=== PATIENT | female | born 1945 | race Caucasian/White ===

== ENCOUNTER 2017-04-10 12:50 | Outpatient (CLI) | payer MEDICARE, OTHER ==
[2017-04-10 18:14] LABS: BASOPHILS # (AUTO) 0.1 10^3/uL (0.0-0.1); BASOPHILS % (AUTO) 0.8 %; EOSINOPHILS # (AUTO) 0.2 10^3/uL (0.0-0.7); EOSINOPHILS % (AUTO) 2.6 %; HCT - HEMATOCRIT 41.6 % (37.0-47.0); HGB - HEMOGLOBIN 14.1 g/dL (12.0-16.0); LYMPHOCYTES # (AUTO) 2.1 10^3/uL (1.5-3.5); LYMPHOCYTES % (AUTO) 26.5 %; MEAN CORPUSCULAR HEMOGLOBIN 30.3 pg (27.0-31.0); MEAN CORPUSCULAR HGB CONC 33.8 g/dL (32.0-36.0); MEAN CORPUSCULAR VOLUME 89.5 fL (81.0-99.0); MONOCYTES # (AUTO) 0.6 10^3/uL (0.0-1.0); NEUTROPHILS # (AUTO) 4.9 10^3/uL (1.5-6.6); NEUTROPHILS % (AUTO) 62.1 %; RED BLOOD COUNT 4.65 10^6/uL (4.20-5.40); RED CELL DISTRIBUTION WIDTH 13.6 % (12.0-15.0); UNCORRECTED WHITE BLOOD COUNT 7.8 x10^3/uL; WHITE BLOOD COUNT 7.8 x10^3/uL (4.8-10.8)
[2017-04-10 19:13] LABS: ALBUMIN/GLOBULIN RATIO 1.4 (1.0-2.2); BILIRUBIN,TOTAL 1.4 mg/dL (0.2-1.0); BUN - BLOOD UREA NITROGEN 19 mg/dL (6-20); CALCIUM 9.3 mg/dL (8.5-10.3); CARBON DIOXIDE - CO2 27 mmol/L (21-32); CHLORIDE 102 mmol/L (101-111); CHOL/HDL RATIO 4.1 (<4.4); CHOLESTEROL 167 mg/dL; CREATININE 0.8 mg/dL (0.4-1.0); GFR - MDRD 71 (>89); GLUCOSE 100 mg/dL (70-100); HDL CHOLESTEROL 41 mg/dL; LDL/HDL RATIO 2.6 (<4.4); POTASSIUM 3.6 mmol/L (3.5-5.0); SODIUM 136 mmol/L (135-145); TOTAL PROTEIN 7.8 g/dL (6.7-8.2); TRIGLYCERIDES 103 mg/dL; VLDL CHOLESTEROL 21 mg/dL
== END 2017-04-10 12:51 | disposition home or self-care (01) ==
LOC: LAB.F 12:50
PROVIDERS: ATTEND Physician Assistant Medical
DX: I10 Essential (primary) hypertension (principal); E55.9 Vitamin D deficiency, unspecified; E78.5 Hyperlipidemia, unspecified
CPT/HCPCS: 36415; 80053; 80061; 82306; 85025

== ENCOUNTER 2017-04-19 10:12 | Outpatient (CLI) | payer MEDICARE, OTHER ==
--- NOTE | 2017-04-19 14:29 | DEXA Report ---
DEXA SCAN: 04/19/2017 CLINICAL INDICATION: Postmenopausal. TECHNIQUE: Dual energy x-ray absorptiometry (DXA) was performed on a [employer] system. Regions measured are the AP spine, femoral neck, and, if needed, forearm. COMPARISON: None. In accordance with the International Society for Clinical Densitometry (ISCD) guidelines, data from previous exams may be reanalyzed using current recommendations and techniques. This is done to allow a more accurate basis for comparison with the current study. FINDINGS: The data for the lumbar spine is as follows: REGION BMD (g/cm/cm) T-SCORE Z-SCORE L1 0.815 -2.6 -1.5 L2 0.968 -1.9 -0.8 L3 1.005 -1.6 -0.5 L4 0.921 -2.3 -1.2 TOTAL 0.930 -2.1 -1.0 NOTE: All evaluable vertebrae are used for classification. The data for the hip is as follows: REGION BMD (g/cm/cm) T-SCORE Z-SCORE Neck 0.797 -1.7 -0.4 TOTAL 0.799 -1.7 -0.6 NOTE: The femoral neck or total proximal femur, whichever is lowest, is used for classification. IMPRESSION: THE WHO CLASSIFICATION BASED ON THE INTERNATIONAL REFERENCE STANDARD IS OSTEOPENIA. THE FRACTURE RISK IS INCREASED. RECOMMENDATION: Patients with diagnosis of osteoporosis or osteopenia should have regular bone mineral density assessment. For those eligible for Medicare, routine testing is allowed once every 2 years. Testing frequency can be increased for patients who have rapidly progressing disease or for those who are receiving medical therapy to restore bone mass. COMMENT: World Health Organization (WHO) definitions for osteoporosis and osteopenia: NORMAL BMD: T-score at -1.0 or higher, fracture risk is low. OSTEOPENIA BMD: T-score between -1.0 and -2.5, fracture risk is increased. OSTEOPOROSIS BMD: T-score at -2.5 or lower, fracture risk high. National Osteoporosis Foundation recommends: 1. Obtain adequate dietary calcium (at least 1200 mg per day) and vitamin D (400 -800 international units per day). 2. Participate, as appropriate, in regular weightbearing and muscle- strengthening exercise. 3. Avoid tobacco use and reduce alcohol and caffeine intake. 4. For more detailed information see the website at www.NOF.org. MTDD
== END 2017-04-19 10:13 | disposition home or self-care (01) ==
LOC: DI 10:12
PROVIDERS: ATTEND Physician Assistant Medical
DX: Z13.820 Encounter for screening for osteoporosis (principal); M85.89 Other specified disorders of bone density and structure, multiple sites
CPT/HCPCS: 77080

== ENCOUNTER 2017-04-19 10:13 | Outpatient (CLI) | payer MEDICARE, OTHER ==
--- NOTE | 2017-05-06 13:50 | Mammography Report ---
DIGITAL SCREENING MAMMOGRAM: 04/19/2017 CLINICAL INDICATION: A 71-year-old, for screening. COMPARISON: Films from [place], [place] dated 05/05/2012, 09/26/2010, 08/17/2008. TECHNIQUE: Routine CC and MLO projections were obtained of the breasts. Bilateral laterally exaggera sara craniocaudal views. FINDINGS: The breasts again demonstrate scattered fibroglandular densities bilaterally. Coarse and p unctate, typically benign calcifications are present. No suspicious masses, clustered microcalcificat ions, or regions of architectural distortion are identified. IMPRESSION: BENIGN FINDINGS. RECOMMENDATION: ROUTINE ANNUAL SCREENING UNLESS OTHERWISE CLINICALLY INDICATED. BIRADS CATEGORY 2-BENIGN FINDINGS. STANDARD QUALIFYING STATEMENTS 1. This examination was reviewed with the aid of Computer-Aided Detection (CAD). 2. A negative or benign imaging report should not delay biopsy if clinically suspicious findings are present. Consider surgical consultation if warranted. More than 5% of cancers are not identified by i maging. 3. Dense breasts may obscure an underlying neoplasm. JOB #: [id number] EXT JOB #:[id number]
== END 2017-04-19 10:14 | disposition home or self-care (01) ==
LOC: DI 10:13
PROVIDERS: ATTEND Physician Assistant Medical
DX: Z12.31 Encounter for screening mammogram for malignant neoplasm of breast (principal)
CPT/HCPCS: 77067

== ENCOUNTER 2017-08-28 11:17 | Outpatient (CLI) | payer MEDICARE, OTHER ==
[2017-08-28 17:35] LABS: HCT - HEMATOCRIT 41.8 % (37.0-47.0); HGB - HEMOGLOBIN 14.3 g/dL (12.0-16.0); MEAN CORPUSCULAR HEMOGLOBIN 30.8 pg (27.0-31.0); MEAN CORPUSCULAR HGB CONC 34.2 g/dL (32.0-36.0); MEAN PLATELET VOLUME 8.6 fL (7.9-10.8); RED BLOOD COUNT 4.65 10^6/uL (4.20-5.40); RED CELL DISTRIBUTION WIDTH 13.4 % (12.0-15.0); WHITE BLOOD COUNT 7.4 x10^3/uL (4.8-10.8)
[2017-08-28 17:55] LABS: URIC ACID 7.9 mg/dL (2.6-7.2)
[2017-08-30 15:42] LABS: ANA SCREEN POSITIVE (NEGATIVE)
== END 2017-08-28 11:18 | disposition home or self-care (01) ==
LOC: LAB.F 11:17
PROVIDERS: ATTEND Orthopaedic Surgery
DX: M25.561 Pain in right knee (principal); S86.912A Strain of unspecified muscle(s) and tendon(s) at lower leg level, left leg, initial encounter
CPT/HCPCS: 36415; 84550; 85651; 86038; 86140; 86430

== ENCOUNTER 2018-09-09 10:50 | Outpatient (CLI) | payer MEDICARE, OTHER ==
[2018-09-09 17:51] LABS: BASOPHILS % (AUTO) 0.5 %; EOSINOPHILS # (AUTO) 0.3 10^3/uL (0.0-0.7); EOSINOPHILS % (AUTO) 4.4 %; HGB - HEMOGLOBIN 12.8 g/dL (12.0-16.0); LYMPHOCYTES # (AUTO) 2.1 10^3/uL (1.5-3.5); MEAN CORPUSCULAR HEMOGLOBIN 30.1 pg (27.0-31.0); MEAN CORPUSCULAR HGB CONC 33.9 g/dL (32.0-36.0); MEAN CORPUSCULAR VOLUME 88.8 fL (81.0-99.0); MEAN PLATELET VOLUME 8.5 fL (7.9-10.8); MONOCYTES # (AUTO) 0.7 10^3/uL (0.0-1.0); MONOCYTES % (AUTO) 9.1 %; NEUTROPHILS # (AUTO) 4.2 10^3/uL (1.5-6.6); PLT - PLATELET COUNT 283 10^3/uL (130-450); RED BLOOD COUNT 4.26 10^6/uL (4.20-5.40); RED CELL DISTRIBUTION WIDTH 13.4 % (12.0-15.0); WHITE BLOOD COUNT 7.3 x10^3/uL (4.8-10.8)
[2018-09-09 18:12] LABS: ALBUMIN 4.3 g/dL (3.2-5.5); ALBUMIN/GLOBULIN RATIO 1.2 (1.0-2.2); ALKALINE PHOSPHATASE 81 IU/L (42-121); ALT ALANINE AMINOTRANSFERASE 18 IU/L (10-60); AST ASPARTATE AMINOTRANSFERASE 19 IU/L (10-42); BILIRUBIN,TOTAL 1.3 mg/dL (0.2-1.0); BUN - BLOOD UREA NITROGEN 15 mg/dL (6-20); CALCIUM 9.1 mg/dL (8.5-10.3); CARBON DIOXIDE - CO2 29 mmol/L (21-32); CHLORIDE 100 mmol/L (101-111); CHOL/HDL RATIO 3.9 (<4.4); CHOLESTEROL 155 mg/dL; CREATININE 0.7 mg/dL (0.4-1.0); GFR - MDRD 82 (>89); GLUCOSE 111 mg/dL (70-100); HDL CHOLESTEROL 40 mg/dL; LDL CHOLESTEROL,CALCULATED 93 mg/dL; LDL/HDL RATIO 2.3 (<4.4); SODIUM 136 mmol/L (135-145); TOTAL PROTEIN 7.8 g/dL (6.7-8.2); VLDL CHOLESTEROL 22 mg/dL
== END 2018-09-09 10:51 | disposition home or self-care (01) ==
LOC: LAB.F 10:50
PROVIDERS: ATTEND Physician Assistant Medical
DX: I10 Essential (primary) hypertension (principal); E78.5 Hyperlipidemia, unspecified
CPT/HCPCS: 36415; 80053; 80061; 83721; 85025

== ENCOUNTER 2018-12-11 13:57 | Outpatient (CLI) | payer MEDICARE, OTHER | END 2018-12-11 13:58 | disposition home or self-care (01) | LOC: DI 13:57 | PROVIDERS: ATTEND Physician Assistant Medical | DX: I49.9 Cardiac arrhythmia, unspecified (principal); Z86.79 Personal history of other diseases of the circulatory system; I35.2 Nonrheumatic aortic (valve) stenosis with insufficiency | CPT/HCPCS: 93306 ==

== ENCOUNTER 2019-02-10 08:00 | Outpatient (CLI) | payer MEDICARE, OTHER ==
[2019-02-10 17:50] LABS: BASOPHILS % (AUTO) 0.5 %; EOSINOPHILS # (AUTO) 0.2 10^3/uL (0.0-0.7); HGB - HEMOGLOBIN 13.8 g/dL (12.0-16.0); LYMPHOCYTES # (AUTO) 1.8 10^3/uL (1.5-3.5); LYMPHOCYTES % (AUTO) 24.1 %; MEAN CORPUSCULAR HEMOGLOBIN 30.1 pg (27.0-31.0); MEAN CORPUSCULAR HGB CONC 34.1 g/dL (32.0-36.0); MEAN CORPUSCULAR VOLUME 88.3 fL (81.0-99.0); MEAN PLATELET VOLUME 9.1 fL (7.9-10.8); MONOCYTES # (AUTO) 0.7 10^3/uL (0.0-1.0); MONOCYTES % (AUTO) 9.1 %; NEUTROPHILS # (AUTO) 4.9 10^3/uL (1.5-6.6); NEUTROPHILS % (AUTO) 64.3 %; PLT - PLATELET COUNT 228 10^3/uL (130-450); RED BLOOD COUNT 4.58 10^6/uL (4.20-5.40); RED CELL DISTRIBUTION WIDTH 13.9 % (12.0-15.0); WHITE BLOOD COUNT 7.7 x10^3/uL (4.8-10.8)
[2019-02-10 17:58] LABS: BILIRUBIN,URINE NEGATIVE (NEGATIVE); CALCIUM 8.8 mg/dL (8.5-10.3); CREATININE 1.1 mg/dL (0.4-1.0); GLUCOSE, URINE (UA) NEGATIVE (NEGATIVE); KETONES,URINE (UA) TRACE mg/dL (NEGATIVE); LEUKOCYTE ESTERASE, URINE NEGATIVE (NEGATIVE); NITRITE,URINE NEGATIVE (NEGATIVE); OCCULT BLOOD,URINE NEGATIVE (NEGATIVE); PROTEIN,URINE NEGATIVE (NEGATIVE); UROBILINOGEN,URINE 0.2 (NORMAL) E.U./dL (NORMAL)
[2019-02-10 18:00] LABS: CLARITY,URINE CLEAR (CLEAR)
[2019-02-10 18:19] LABS: HB2 TOTAL 14.7 g/dL; HEMOGLOBIN A1C 0.52 g/dL; HEMOGLOBIN A1C % 5.4 % (4.6-6.2)
== END 2019-02-10 23:59 | disposition home or self-care (01) ==
LOC: LAB.F 08:00
PROVIDERS: ATTEND Orthopaedic Surgery
DX: Z01.812 Encounter for preprocedural laboratory examination (principal); R73.9 Hyperglycemia, unspecified; N39.9 Disorder of urinary system, unspecified; Z13.1 Encounter for screening for diabetes mellitus
CPT/HCPCS: 36415; 80048; 81003; 83036; 85025

== ENCOUNTER 2020-06-25 13:23 | Outpatient (CLI) | payer MEDICARE, OTHER | END 2020-06-25 13:24 | disposition home or self-care (01) | LOC: RT 13:23 | PROVIDERS: ATTEND Physician Assistant | DX: I10 Essential (primary) hypertension (principal); R06.2 Wheezing; R06.00 Dyspnea, unspecified; R01.1 Cardiac murmur, unspecified | CPT/HCPCS: 94010 ==

== ENCOUNTER 2021-07-26 08:00 | Outpatient (CLI) | payer MEDICARE, OTHER ==
[2021-07-26 21:30] LABS: BACTERIAL VAGINOSIS DNA NEGATIVE (NEGATIVE); CANDIDA GLABRATA DNA NEGATIVE (NEGATIVE); CANDIDA GROUP DNA NEGATIVE (NEGATIVE); CANDIDA KRUSEI DNA NEGATIVE (NEGATIVE); TRICHOMONAS VAGINALIS DNA NEGATIVE (NEGATIVE)
== END 2021-07-26 23:59 | disposition home or self-care (01) ==
LOC: LAB.S 08:00
PROVIDERS: ATTEND Physician Assistant Medical
DX: N76.0 Acute vaginitis (principal)
CPT/HCPCS: 87661; 87801

== ENCOUNTER 2021-09-11 11:42 | Outpatient (CLI) | payer MEDICARE, OTHER ==
[2021-09-11 14:59] LABS: BASOPHILS % (AUTO) 0.4 %; EOSINOPHILS # (AUTO) 0.2 10^3/uL (0.0-0.7); EOSINOPHILS % (AUTO) 1.8 %; HCT - HEMATOCRIT 42.7 % (37.0-47.0); HGB - HEMOGLOBIN 13.9 g/dL (12.0-16.0); LYMPHOCYTES # (AUTO) 1.9 10^3/uL (1.5-3.5); LYMPHOCYTES % (AUTO) 18.9 %; MEAN CORPUSCULAR HEMOGLOBIN 29.8 pg (27.0-31.0); MEAN CORPUSCULAR HGB CONC 32.6 g/dL (32.0-36.0); MEAN CORPUSCULAR VOLUME 91.4 fL (81.0-99.0); MONOCYTES # (AUTO) 0.8 10^3/uL (0.0-1.0); MONOCYTES % (AUTO) 7.8 %; NEUTROPHILS # (AUTO) 7.2 10^3/uL (1.5-6.6); NEUTROPHILS % (AUTO) 70.6 %; PLT - PLATELET COUNT 243 10^3/uL (130-450); RED BLOOD COUNT 4.67 10^6/uL (4.20-5.40); RED CELL DISTRIBUTION WIDTH 13.5 % (12.0-15.0); WHITE BLOOD COUNT 10.1 x10^3/uL (4.8-10.8)
[2021-09-11 15:21] LABS: THYROID STIMULATING HORMONE 1.18 uIU/mL (0.34-5.60)
[2021-09-11 15:40] LABS: ALBUMIN 4.6 g/dL (3.2-5.5); ALBUMIN/GLOBULIN RATIO 1.2 (1.0-2.2); ALKALINE PHOSPHATASE 66 IU/L (42-121); ALT ALANINE AMINOTRANSFERASE 42 IU/L (10-60); AST ASPARTATE AMINOTRANSFERASE 34 IU/L (10-42); BILIRUBIN,TOTAL 1.5 mg/dL (0.2-1.0); BUN - BLOOD UREA NITROGEN 18 mg/dL (6-20); CALCIUM 9.4 mg/dL (8.5-10.3); CARBON DIOXIDE - CO2 26 mmol/L (21-32); CHLORIDE 101 mmol/L (101-111); CHOL/HDL RATIO 4.2 (<4.4); CHOLESTEROL 186 mg/dL; GFR - MDRD 54 (>89); GLUCOSE 104 mg/dL (70-100); HDL CHOLESTEROL 44 mg/dL; LDL CHOLESTEROL,CALCULATED 116 mg/dL; LDL/HDL RATIO 2.6 (<4.4); POTASSIUM 3.7 mmol/L (3.5-5.0); SODIUM 139 mmol/L (135-145); TOTAL PROTEIN 8.3 g/dL (6.7-8.2); TRIGLYCERIDES 130 mg/dL; VLDL CHOLESTEROL 26 mg/dL
== END 2021-09-11 11:43 | disposition home or self-care (01) ==
LOC: LAB.S 11:42
PROVIDERS: ATTEND Internal Medicine
DX: E78.5 Hyperlipidemia, unspecified (principal); K21.9 Gastro-esophageal reflux disease without esophagitis; I10 Essential (primary) hypertension; I49.9 Cardiac arrhythmia, unspecified; Z86.79 Personal history of other diseases of the circulatory system
CPT/HCPCS: 36415; 80053; 80061; 83721; 84443; 85025

== ENCOUNTER 2022-02-21 08:00 | Outpatient (CLI) | payer MEDICARE, OTHER ==
--- NOTE | 2022-02-21 16:37 | XRAY Report ---
PROCEDURE: Chest 2 View X-Ray INDICATIONS: WHEEZING TECHNIQUE: 2 view(s) of the chest. COMPARISON: None. FINDINGS: Surgical changes and devices: None. Lungs and pleura: No pleural effusions or pneumothorax. Lungs are clear. Mediastinum: Mediastinal contours are normal. Heart size is normal. Bones and chest wall: No suspicious bony abnormalities. Soft tissues appear unremarkable. IMPRESSION: No acute cardiopulmonary process demonstrated radiographically. Reviewed by: Jonathan Chavez MD on 02/21/2022 4:35 PM PDT Approved by: Jonathan Chavez MD on 02/21/2022 4:35 PM PDT Station ID: [id number]
== END 2022-02-21 23:59 | disposition home or self-care (01) ==
LOC: DI.S 08:00
PROVIDERS: ATTEND Physician Assistant
DX: R06.2 Wheezing (principal); R05.8 Other specified cough; J34.89 Other specified disorders of nose and nasal sinuses; Z20.822 Contact with and (suspected) exposure to COVID-19
CPT/HCPCS: 71046; U0004

== ENCOUNTER 2023-05-10 14:26 | Outpatient (CLI) | payer MEDICARE | END 2023-05-10 23:59 | disposition critical access hospital (66) | LOC: EMS 14:26 | DX: I48.91 Unspecified atrial fibrillation (principal); R07.9 Chest pain, unspecified | CPT/HCPCS: A0425; A0427 ==

== ENCOUNTER 2023-05-10 15:02 | Emergency (ER) | payer MEDICARE ==
[2023-05-10] MEDS ORDERED: SODIUM CHLORIDE 0.9% 1,000 ML IV STA (15:18)
--- NOTE | 2023-05-10 15:23 | ED Physician Documentation ---
PD HPI CHEST PAIN - Stated complaint Stated Complaint: RAPID AFIB - Chief complaint Chief Complaint: Cardiac - History obtained from History obtained from: Patient - Additional information Additional information: Patient is a 77-year-old female presenting for evaluation of chest pain and noted to be in A-fib. Patient reports starting to have chest pain in the middle of her chest yesterday around 4 PM as she was sitting at home. She denies radiation to the pain. She reports associated feeling short of air and having difficulty in taking a deep breath. She also reports having periods over the pa st several weeks where her heart feels fluttering and racing. She has been to her PCP at the end of April for this and reports being told she was in A-fib but that they would continue to monitor this. She was not started on a blood thinner. She does not take regular aspirin. She does not currently see a resident care technician.She thinks she may have a had a history of A-fib in the past but again has never been placed on a blood thinner.Denies a history of a blood clot. Denies a history of a previous CT. Review of Systems Constitutional: denies: Fever Cardiac: reports: Chest pain / pressure Respiratory: reports: Dyspnea GI: denies: Abdominal Pain, Vomiting : denies: Dysuria Neurologic: denies: Syncope PD PAST MEDICAL HISTORY - Past Medical History Cardiovascular: Hypertension Respiratory: Asthma Endocrine/Autoimmune: None GI: GERD : None HEENT: Chronic vision loss, Other Psych: Depression, Anxiety Musculoskeletal: Osteoarthritis Derm: None - Past Surgical History General: Colonoscopy, EGD Ortho: Hip replacement - Present Medications Home Medications: Ambulatory Orders Medication Instructions Recorded Confirmed Aspirin [Aspir-Low] 81 mg PO DAILY 02/24/16 02/24/16 Atorvastatin Calcium [Lipitor] 20 mg PO DAILY 02/24/16 02/24/16 Citalopram Hydrobromide [Celexa] 40 mg PO DAILY 02/24/16 02/24/16 Folic Acid 1 mg PO DAILY 02/24/16 02/24/16 Potassium Chloride 10 mg PO DAILY 02/24/16 02/24/16 Trazodone HCl 50 mg PO DAILY 02/24/16 02/24/16 Triamterene/Hydrochlorothiazid 1 tab PO DAILY 02/24/16 02/24/16 [Triamterene-Hctz 75-50 mg Tab] raNITIdine HCL [Ranitidine HCl] 150 mg PO BID 02/24/16 02/24/16 Apixaban [Eliquis] 5 mg PO BID #60 tablet 05/10/23 dilTIAZem HCL [Cardizem] 30 mg PO Q6HR 30 Days #120 tab 05/10/23 - Allergies Allergies/Adverse Reactions: Allergies Allergy/AdvReac Type Severity Reaction Status Date / Time hydrocodone Allergy Rash Verified 05/10/23 15:17 - Social History Smoking Status: Never smoker PD ED PE NORMAL - General General: Alert and oriented X 3, No acute distress, Well developed/nourished - HEENT HEENT: Atraumatic - Neck Neck: Supple, no meningeal sign - Cardiac Cardiac: Other (Tachycardic, irregularly irregular) - Respiratory Respiratory: No respiratory distress, Clear bilaterally - Abdomen Abdomen: Soft, Non tender - Derm Derm: Warm and dry - Extremities Extremities: No edema, No calf tenderness / cord - Neuro Neuro: Alert and oriented X 3, No motor deficit, Normal speech Results - Vitals Vitals: Vital Signs - 24 hr 05/10/23 05/10/23 15:08 18:53 Temperature 36.4 C L Heart Rate 118 H 96 Respiratory 18 22 Rate Blood Pressure 122/76 115/62 O2 Saturation 92 91 L Oxygen O2 Source Room air - EKG (time done) 1504 EKG releavant findings:: EKG personally interpreted by author of this note. Relevant findings are: Rate 112, atrial fibrillation, no STEMI Rate: Rate (enter#) (112) Rhythm: Atrial fibrillation Ischemia: No: ST elevation c/w ischemia Compare to prior EKG: Old EKG unavailable - Labs Labs: Laboratory Tests 05/10/23 05/10/23 05/10/23 15:27 15:27 15:27 WBC 13.1 H RBC 3.98 L Hgb 12.3 Hct 35.9 L MCV 90.2 MCH 30.9 MCHC 34.3 RDW 13.4 Plt Count 209 MPV 10.2 Neut # (Auto) 9.3 H Lymph # (Auto) 2.3 Nye # (Auto) 1.4 H Eos # (Auto) 0.1 Baso # (Auto) 0.0 Absolute Nucleated RBC 0.00 Nucleated RBC % 0.0 D-Dimer 222.9 Sodium 136 Potassium 3.3 L Chloride 103 Carbon Dioxide 23 Anion Gap 10.0 BUN 19 Creatinine 1.0 Estimated GFR (MDRD) 54 L Glucose 105 H Calcium 8.8 Total Bilirubin 2.1 H AST 16 ALT 18 Alkaline Phosphatase 54 Troponin I High Sens Total Protein 7.7 Albumin 3.8 Globulin 3.9 Albumin/Globulin Ratio 1.0 Lipase 28 TSH 05/10/23 05/10/23 05/10/23 15:27 15:27 17:21 WBC RBC Hgb Hct MCV MCH MCHC RDW Plt Count MPV Neut # (Auto) Lymph # (Auto) [place]ye # (Auto) Eos # (Auto) Baso # (Auto) Absolute Nucleated RBC Nucleated RBC % D-Dimer Sodium Potassium Chloride Carbon Dioxide Anion Gap BUN Creatinine Estimated GFR (MDRD) Glucose Calcium Total Bilirubin AST ALT Alkaline Phosphatase Troponin I High Sens 84.1 H* 81.7 H* Total Protein Albumin Globulin Albumin/Globulin Ratio Lipase TSH 1.35 PD Medical Decision Making - ED course Complexity details: reviewed results, re-evaluated patient, d/w patient ED course: Patient is a 77-year-old female presenting for evaluation of chest pain And atrial fibrillation. It appears that she has had a prior history of A-fib per her reports but has not been on medication for it. It is unclear how long she Has been in A-fib. She does report having chest pain that started since yesterday afternoon in the setting of feeling her heart racing. She was seen at the walk-in clinic and noted to be in A-fib with RVR and was given IV diltiazem from EMS. I gave her an additional IV dose of diltiazem as well as p.o. Cardizem. She had improvement with her rate which significantly improved her symptoms and she no longer was feeling any chest pain. Initial high-sensitivity troponin is 84 which is in the indeterminate zone. A repeat troponin is 81 which is slightly lower and not significantly changed. Therefore I feel that these values and the delta makes ACS less likely especially as her symptoms have largely resolved with rate control. D-dimer is negative thus I do not think she has a pulmonary embolism. Bili is 2.1 but she has no abdominal tenderness. I reviewed her chest x-ray. No pleural effusions. She is feeling much better here and has maintained adequate rate control.She does not have Exam findings to suggest fluid overload. We discussed anticoagulation as her [id number] score is greater than 2.She understands the risks of anticoagulation and is agreeable to Eliquis. I have started her on p.o. Cardizem and Eliquis. She does not currently have a resident care technician. I have encouraged her to make a follow-up appointment with her PCP for close follow-up. She is also advised on strict return precautions for any new or worsening symptoms. Departure - Departure Disposition: 01 Home, Self Care Clinical Impression: Atrial fibrillation, Chest pain Condition: Stable Instructions: ED Afib, ED Chest Pain Atypical Unkn Cause Follow-Up: RACHID HARDY PA [Physician No Access] - Prescriptions: dilTIAZem HCL [Cardizem] 30 mg PO Q6HR 30 Days #120 tab Apixaban [Eliquis] 5 mg PO BID #60 tablet Comments: You were evaluated for an irregular rhythm called atrial fibrillation as well as chest pain. It is unclear how long you have been in this your regular rhythm. We have been able to help by giving you medicine to help lower how fast your heart is going. However you are still in this irregular rhythm. We are starting you on 2 medications. 1 medicine is called Cardizem and this is to help control the heart rate so it does not become too fast. Before taking this medication please check your heart rate. Do not take this medicine if your heart rate is below 60. The other medicine that we are prescribing is called Eliquis which is a blood thinner. This will help prevent clots in your body from forming due to this irregular rhythm. As we have discussed that there are risks associated with being on a blood thinner including a life-threatening bleeding. At this time I believe that your chest pain was related to your heart beating too fast from your irregular rhythm. However you may need further testing to check your heart including an echocardiogram which is an ultrasound of your heart or a stress test. I would recommend calling your primary care provider on Saturday morning to arrange for close follow-up regarding your new diagnosis as well as these medications and your chest pain. If it anytime you have any recurrence of your symptoms or new concerning symptoms please return to the emergency department. I have sent your prescriptions to [facility] in [place]. Discharge Date/Time: 05/10/23 18:53
[2023-05-10] MEDS ORDERED: diltiaZEM INJ 5 MG/ML VIAL IVP STA (15:32)
[2023-05-10 15:35] LABS: BASOPHILS % (AUTO) 0.2 %; EOSINOPHILS # (AUTO) 0.1 10^3/uL (0.0-0.7); EOSINOPHILS % (AUTO) 0.7 %; HCT - HEMATOCRIT 35.9 % (37.0-47.0); HGB - HEMOGLOBIN 12.3 g/dL (12.0-16.0); LYMPHOCYTES # (AUTO) 2.3 10^3/uL (1.5-3.5); LYMPHOCYTES % (AUTO) 17.6 %; MEAN CORPUSCULAR HEMOGLOBIN 30.9 pg (27.0-31.0); MEAN CORPUSCULAR HGB CONC 34.3 g/dL (32.0-36.0); MEAN CORPUSCULAR VOLUME 90.2 fL (81.0-99.0); MEAN PLATELET VOLUME 10.2 fL (7.9-10.8); MONOCYTES # (AUTO) 1.4 10^3/uL (0.0-1.0); MONOCYTES % (AUTO) 10.5 %; NEUTROPHILS # (AUTO) 9.3 10^3/uL (1.5-6.6); NEUTROPHILS % (AUTO) 70.6 %; PLT - PLATELET COUNT 209 10^3/uL (130-450); RED BLOOD COUNT 3.98 10^6/uL (4.20-5.40); RED CELL DISTRIBUTION WIDTH 13.4 % (12.0-15.0); WHITE BLOOD COUNT 13.1 x10^3/uL (4.8-10.8)
[2023-05-10 15:46] LABS: ALBUMIN 3.8 g/dL (3.2-5.5); BILIRUBIN,TOTAL 2.1 mg/dL (0.2-1.0); CALCIUM 8.8 mg/dL (8.5-10.3); POTASSIUM 3.3 mmol/L (3.5-5.0); TOTAL PROTEIN 7.7 g/dL (6.7-8.2)
[2023-05-10] MEDS ORDERED: POTASSIUM CHLORIDE 20 MEQ TABLET PO STA (16:16)
[2023-05-10] MEDS ORDERED: diltiaZEM 30 MG TABLET PO STA (16:26)
--- NOTE | 2023-05-10 17:27 | XRAY Report ---
PROCEDURE: Chest 1 View X-Ray INDICATIONS: CP TECHNIQUE: One view of the chest was acquired. COMPARISON: 02/21/2022 FINDINGS: Surgical changes and devices: None. Lungs and pleura: Moderate interstitial prominence, increased compared to prior imaging. No pleural effusions. Mediastinum: Borderline cardiomegaly. Bones and chest wall: No suspicious bony lesions. Overlying soft tissues appear unremarkable. IMPRESSION: Increased diffuse interstitial prominence representing edema or atypical infection. No pleural effusi ons. Consider future imaging surveillance to assess for resolution. . Borderline cardiomegaly. Reviewed by: Hang Amador MD on 05/10/2023 5:26 PM PDT Approved by: Hang Amador MD on 05/10/2023 5:26 PM PDT Station ID: [id number]
[2023-05-10] MEDS ORDERED: APIXABAN 5 MG TABLET PO STA (18:04)
[2023-05-10 18:59] VITALS: BP 115/62
== END 2023-05-10 18:53 | disposition home or self-care (01) ==
LOC: EDUNIT# → ED 15:02
DX: R07.9 Chest pain, unspecified (principal); I48.91 Unspecified atrial fibrillation
CPT/HCPCS: 36415; 71045; 80053; 83690; 84443; 84484; 85025; 85379; 93005; 96374; 99284; A9270

== ENCOUNTER 2023-06-03 14:21 | Outpatient (CLI) | payer MEDICARE ==
--- NOTE | 2023-06-03 16:50 | DEXA Report ---
PROCEDURE: Dexa Spine and/or Hip INDICATIONS: POST MENOPAUSAL TECHNIQUE: Dual energy x-ray absorptiometry (DXA) was performed on a [employer] System. Regions measur ed are the AP Spine, femoral neck, and if needed forearm. COMPARISON: DEXA, 04/19/2017. FINDINGS: Lumbar Spine: Bone Mineral Density 1.009 g/cm/cm,T score -1.4. Increased by 8.5%. Left Forearm: Bone Mineral Density 0.788 g/cm/cm, T score -1.0. Left forearm bone density was obtained instead of hips because of bilateral arthroplasties. (T score greater or equal to -1.0: NORMAL) (T score from -1.1 to -2.4: OSTEOPENIA) (T score less than or equal to -2.5 to: OSTEOPOROSIS) Impression: 1. By WHO criteria, this patient has osteoporosis. Compared to last exam, the patient's bone density in lumbar spine has increased by 8.5%. 2. Left forearm bone density was obtained because of bilateral hip arthroplasties. Patients with diagnosis of osteoporosis or osteopenia should have regular bone mineral density assess ment. For those eligible for Medicare, routine testing is allowed once every 2 years. Testing frequ ency can be increased for patients who have rapidly progressing disease or for those who are receivin g medical therapy to restore bone mass. Reviewed by: Turner Lundberg MD on 06/03/2023 4:49 PM PDT Approved by: Turner Lundberg MD on 06/03/2023 4:49 PM PDT Station ID: [id number]
== END 2023-06-03 14:22 | disposition home or self-care (01) ==
LOC: DI 14:21
PROVIDERS: ATTEND Physician Assistant
DX: Z78.0 Asymptomatic menopausal state (principal); M81.0 Age-related osteoporosis without current pathological fracture; Z96.643 Presence of artificial hip joint, bilateral

== ENCOUNTER 2023-06-03 14:23 | Outpatient (CLI) | payer MEDICARE ==
--- NOTE | 2023-06-04 10:13 | Mammography Report ---
BILATERAL DIGITAL SCREENING MAMMOGRAM 3D/2D: 06/03/2023 CLINICAL: Routine screening. Comparison is made to exam dated: 04/19/2017 mammogram - [facility]. There are scattered areas of fibroglandular density in both breasts (category b / 25%-50% glandular t issue). No significant masses, calcifications, or other findings are seen in either breast. There has been no significant interval change. IMPRESSION: NEGATIVE There is no mammographic evidence of malignancy. A 1 year screening mammogram is recommended. Based on the Tyrer Cuzick model (a risk assessment model) the patients lifetime risk is 2.1% and her 10 year risk is 0.0%. According to the ACR, ACS, and NCCN guidelines, an annual breast MRI exam shahnaz g with mammogram is recommended if the patients lifetime risk is 20% or greater. This exam was interpreted at Station ID: [id number]. NOTE: For mammograms, a report in lay terms will be sent to the patient. Approximately 15% of breast malignancies will not be visualized mammographically. In the management of a palpable breast mass, a negative mammogram must not discourage biopsy of a clinically suspicious lesion. Electronically Signed By: Junior [email or web address]/kiya:06/04/2023 07:46:43 letter sent: No_Letter ACR BI-RADS Category 1: Negative 3341F PARENCHYMAL PATTERN: (A) - The breast(s) demonstrate(s) scattered fibroglandular densities. BI-RADS CATEGORY: (1) - 1 Mammogram [id number] 1 year screening LATERALITY: (B)
== END 2023-06-03 14:24 | disposition home or self-care (01) ==
LOC: DI 14:23
PROVIDERS: ATTEND Physician Assistant
DX: Z12.31 Encounter for screening mammogram for malignant neoplasm of breast (principal)

== ENCOUNTER 2023-07-11 12:43 | Outpatient (CLI) | payer MEDICARE | END 2023-07-11 12:44 | disposition home or self-care (01) | LOC: DI 12:43 | PROVIDERS: ATTEND Physician Assistant | DX: I08.0 Rheumatic disorders of both mitral and aortic valves (principal) | CPT/HCPCS: 93306 ==

== ENCOUNTER 2023-09-26 23:57 | Emergency (ER) | payer MEDICARE ==
[2023-09-27 00:28] LABS: BASOPHILS # (AUTO) 0.1 10^3/uL (0.0-0.1); BASOPHILS % (AUTO) 0.4 %; EOSINOPHILS # (AUTO) 0.3 10^3/uL (0.0-0.7); EOSINOPHILS % (AUTO) 2.8 %; HCT - HEMATOCRIT 41.2 % (37.0-47.0); HGB - HEMOGLOBIN 13.3 g/dL (12.0-16.0); LYMPHOCYTES # (AUTO) 3.4 10^3/uL (1.5-3.5); LYMPHOCYTES % (AUTO) 29.9 %; MEAN CORPUSCULAR HEMOGLOBIN 29.6 pg (27.0-31.0); MEAN CORPUSCULAR HGB CONC 32.3 g/dL (32.0-36.0); MEAN CORPUSCULAR VOLUME 91.8 fL (81.0-99.0); MEAN PLATELET VOLUME 10.2 fL (7.9-10.8); MONOCYTES # (AUTO) 0.9 10^3/uL (0.0-1.0); NEUTROPHILS # (AUTO) 6.7 10^3/uL (1.5-6.6); NEUTROPHILS % (AUTO) 58.4 %; PLT - PLATELET COUNT 252 10^3/uL (130-450); RED BLOOD COUNT 4.49 10^6/uL (4.20-5.40); RED CELL DISTRIBUTION WIDTH 14.7 % (12.0-15.0); WHITE BLOOD COUNT 11.4 x10^3/uL (4.8-10.8)
--- NOTE | 2023-09-27 00:40 | XRAY Report ---
PROCEDURE: Chest 1 View X-Ray INDICATIONS: CP TECHNIQUE: One view of the chest was acquired. COMPARISON: None. FINDINGS: Surgical changes and devices: None. Lungs and pleura: Increased pulmonary vascularity. Mediastinum: Mediastinal contours appear normal. Heart size is enlarged. Bones and chest wall: No suspicious bony lesions. Overlying soft tissues appear unremarkable. IMPRESSION: Cardiomegaly with increased vascularity suggestive of edema. Reviewed by: Liyah Solomon MD on 09/27/2023 12:38 AM RUST Approved by: Liyah Solomon MD on 09/27/2023 12:38 AM RUST Station ID: [id number]
[2023-09-27 00:42] LABS: ALBUMIN 4.1 g/dL (3.2-5.5); ALBUMIN/GLOBULIN RATIO 1.5 (1.0-2.2); BILIRUBIN,TOTAL 0.8 mg/dL (0.2-1.0); CALCIUM 9.3 mg/dL (8.5-10.3); CREATININE 1.1 mg/dL (0.6-1.3); POTASSIUM 4.4 mmol/L (3.5-4.5); TOTAL PROTEIN 6.8 g/dL (6.4-8.9)
[2023-09-27 00:49] LABS: TROPONIN I HIGH SENSITIVITY 135.6 ng/L (2.3-14.8)
[2023-09-27] MEDS ORDERED: ASPIRIN CHEW 81 MG TABLET PO STA (02:39)
--- NOTE | 2023-09-27 02:43 | ED Physician Documentation ---
PD HPI CHEST PAIN - Stated complaint Stated Complaint: CHEST PX/SOA - Chief complaint Chief Complaint: Cardiac - History obtained from History obtained from: Patient - Additional information Additional information: Patient is a 77-year-old female with a history of A-fib on Eliquis, hypertension and hyperlipidemia presenting for evaluation of an episode of chest pain at 11:00 PM as she was laying in bed. Patient reports the pain started in the middle of her chest and radiated to both arms. It felt sharp. It lasted approximately 45 minutes and has since resolved. She reports feeling a little short of air at the time. It has not reoccurred. She did have a similar episode the evening prior. 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 She believes she had a stress test 1 month ago that was normal. She has not had other episodes of chest pain other than in the last 2 days. She currently does not have any symptoms. Denies recent illness. She has been compliant with her medications and last took her Eliquis last night. Review of Systems Constitutional: denies: Fever Cardiac: reports: Chest pain / pressure Respiratory: denies: Dyspnea GI: denies: Abdominal Pain Musculoskeletal: denies: Extremity pain, Extremity swelling Neurologic: denies: Headache PD PAST MEDICAL HISTORY - Past Medical History Past Medical History: Yes Cardiovascular: Congestive heart failure, Hypertension Respiratory: Asthma Endocrine/Autoimmune: None GI: GERD : None HEENT: Chronic vision loss, Other Psych: Depression, Anxiety Musculoskeletal: Osteoarthritis Derm: None - Past Surgical History Past Surgical History: Yes General: Colonoscopy, EGD Ortho: Hip replacement - Present Medications Home Medications: Ambulatory Orders Medication Instructions Recorded Confirmed Atorvastatin Calcium [Lipitor] 20 mg PO DAILY 02/24/16 09/27/23 Citalopram Hydrobromide [Celexa] 40 mg PO DAILY 02/24/16 09/27/23 Folic Acid 1 mg PO DAILY 02/24/16 09/27/23 Potassium Chloride 10 mg PO DAILY 02/24/16 09/27/23 Trazodone HCl 50 mg PO DAILY 02/24/16 09/27/23 Triamterene/Hydrochlorothiazid 1 tab PO DAILY 02/24/16 09/27/23 [Triamterene-Hctz 75-50 mg Tab] raNITIdine HCL [Ranitidine HCl] 150 mg PO BID 02/24/16 09/27/23 Apixaban [Eliquis] 5 mg PO BID #60 tablet 05/10/23 09/27/23 dilTIAZem HCL [Cardizem] 30 mg PO Q6HR 30 Days #120 tab 05/10/23 09/27/23 Metoprolol Succinate 50 mg PO DAILY 09/27/23 09/27/23 - Allergies Allergies/Adverse Reactions: Allergies Allergy/AdvReac Type Severity Reaction Status Date / Time hydrocodone Allergy Rash Verified 09/27/23 00:01 - Social History Does the pt smoke?: No Smoking Status: Never smoker Does the pt drink ETOH?: No Does the pt have substance abuse?: No - Immunizations Immunizations are current?: Yes PD ED PE NORMAL - General General: Alert and oriented X 3, No acute distress, Well developed/nourished - HEENT HEENT: Atraumatic - Neck Neck: Supple, no meningeal sign - Cardiac Cardiac: RRR, Strong equal pulses - Respiratory Respiratory: No respiratory distress, Clear bilaterally - Abdomen Abdomen: Soft, Non tender, Non distended - Derm Derm: Warm and dry - Extremities Extremities: No edema, No calf tenderness / cord - Neuro Neuro: Normal speech Results - Vitals Vitals: Vital Signs - 24 hr 09/27/23 09/27/23 09/27/23 00:01 00:34 01:04 Temperature 36.8 C Heart Rate 85 62 59 L Respiratory 16 20 16 Rate Blood Pressure 106/88 H 146/60 H 144/64 H O2 Saturation 90 L 93 92 If not protocol : Oxygen Flow, liters/minute 09/27/23 09/27/23 09/27/23 01:30 02:00 03:00 Temperature Heart Rate 55 L 55 L 63 Respiratory 16 20 20 Rate Blood Pressure 152/58 H 155/64 H 169/66 H O2 Saturation 93 93 88 L If not protocol : Oxygen Flow, liters/minute 09/27/23 09/27/23 09/27/23 03:21 03:30 03:40 Temperature Heart Rate 62 58 L 57 L Respiratory 18 20 18 Rate Blood Pressure 169/66 H 164/76 H O2 Saturation 92 If not protocol 4 4 4 : Oxygen Flow, liters/minute 09/27/23 04:00 Temperature Heart Rate 58 L Respiratory 20 Rate Blood Pressure 153/71 H O2 Saturation 92 If not protocol 2 : Oxygen Flow, liters/minute Oxygen O2 Source Nasal cannula Oxygen Flow Rate 2 - EKG (time done) 1216 EKG releavant findings:: EKG personally interpreted by author of this note. Relevant findings are: Rate 64, normal sinus rhythm, no STEMI - Labs Labs: Laboratory Tests 09/27/23 09/27/23 09/27/23 00:16 00:16 00:16 WBC 11.4 H RBC 4.49 Hgb 13.3 Hct 41.2 MCV 91.8 MCH 29.6 MCHC 32.3 RDW 14.7 Plt Count 252 MPV 10.2 Neut # (Auto) 6.7 H Lymph # (Auto) 3.4 [place] # (Auto) 0.9 Eos # (Auto) 0.3 Baso # (Auto) 0.1 Absolute Nucleated RBC 0.00 Nucleated RBC % 0.0 Sodium 136 Potassium 4.4 Chloride 106 Carbon Dioxide 24 Anion Gap 6.0 BUN 26 H Creatinine 1.1 Estimated GFR (MDRD) 48 L Glucose 105 H Calcium 9.3 Total Bilirubin 0.8 AST 17 ALT 11 Alkaline Phosphatase 62 Troponin I High Sens 135.6 H* B-Natriuretic Peptide 715 H Total Protein 6.8 Albumin 4.1 Globulin 2.7 Albumin/Globulin Ratio 1.5 09/27/23 02:00 WBC RBC Hgb Hct MCV MCH MCHC RDW Plt Count MPV Neut # (Auto) Lymph # (Auto) [place] # (Auto) Eos # (Auto) Baso # (Auto) Absolute Nucleated RBC Nucleated RBC % Sodium Potassium Chloride Carbon Dioxide Anion Gap BUN Creatinine Estimated GFR (MDRD) Glucose Calcium Total Bilirubin AST ALT Alkaline Phosphatase Troponin I High Sens 227.7 H* B-Natriuretic Peptide Total Protein Albumin Globulin Albumin/Globulin Ratio PD Medical Decision Making - ED course Complexity details: reviewed results, re-evaluated patient, d/w patient ED course: Patient is a 77-year-old female with a history of hypertension, A-fib, hyperlipidemia presenting for evaluation of an episode of chest pain that occurred this evening lasting for 45 minutes and radiating to both arms. She did similar episode the night before. She has been pain-free here. Her EKG is reviewed without signs of acute ischemia. CBC, chemistry, troponin and BNP reviewed. BNP is 700s. Troponin is elevated around 135. Second troponin at 2 h ours is also increased at 227. Patient again has been pain-free here but given her symptoms as well as increase in troponin and short time I am concerned for cardiac process.Chest x-ray shows mild edema but clinically does not appear fluid overloaded. I have started the patient on aspirin and will give a dose of Lovenox and hold her Eliquis. Feel patient requires transfer to facility with cardiology capabilities. Patient was graciously accepted at [facility]. 0319 - D/W Dr. Jamison ([facility]) - Accepts the patient for transfer. Departure - Departure Disposition: 02 Transfer Acute Care Hosp Clinical Impression: NSTEMI (non-ST elevated myocardial infarction) Condition: Stable Forms: PCP List Discharge Date/Time: 09/27/23 04:23
[2023-09-27] MEDS ORDERED: ENOXAPARIN 80 MG/0.8 ML SYRINGE SUBQ SCH ×2 (03:00→09:00)
[2023-09-27 03:27] VITALS: O2SAT 92
[2023-09-27] MEDS ORDERED: IPRATROPIUM/ALBUTEROL 3 ML NEB INH STA (03:27)
[2023-09-27 04:30] VITALS: BP 153/71
== END 2023-09-27 04:23 | disposition short-term general hospital (02) ==
LOC: ED 23:57
DX: I21.4 Non-ST elevation (NSTEMI) myocardial infarction (principal); I48.91 Unspecified atrial fibrillation; Z79.01 Long term (current) use of anticoagulants; I10 Essential (primary) hypertension
CPT/HCPCS: 36415; 71045; 80053; 83880; 84484; 85025; 93005; 94640; 96372; 99285; A9270; J1650

== ENCOUNTER 2023-09-27 04:23 | Outpatient (CLI) | payer MEDICARE | END 2023-09-27 04:24 | disposition short-term general hospital (02) | LOC: EMS 04:23 | PROVIDERS: ATTEND Emergency Medicine | DX: I21.4 Non-ST elevation (NSTEMI) myocardial infarction (principal) | CPT/HCPCS: A0425; A0426 ==

== ENCOUNTER 2024-07-14 18:33 | Outpatient (CLI) | payer MEDICARE | END 2024-07-14 18:34 | disposition short-term general hospital (02) | LOC: EMS 18:33 | DX: R53.1 Weakness (principal); I49.9 Cardiac arrhythmia, unspecified | CPT/HCPCS: A0425; A0427 ==